=== PATIENT | male | born 1960 | race Caucasian/White ===

== ENCOUNTER → 2024-02-15 | Outpatient (CLI) | payer MEDICAID | END | disposition home or self-care (01) | LOC: LAB 10:34 | PROVIDERS: ATTEND Internal Medicine | DX: Z11.59 Encounter for screening for other viral diseases (principal); M21.371 Foot drop, right foot; K74.60 Unspecified cirrhosis of liver; E55.9 Vitamin D deficiency, unspecified; D64.9 Anemia, unspecified; L81.8 Other specified disorders of pigmentation; K76.82 Hepatic encephalopathy; R41.3 Other amnesia | CPT/HCPCS: 86703 ==

== ENCOUNTER → 2024-04-27 | Outpatient (CLI) | payer MEDICAID ==
[2024-04-27 09:41] LABS: Basophils # (auto) 0 10 ^3/uL (0-0.2); Basophils % (auto) 0.3 % (0.0-2.0); Eosinophils # (auto) 0.1 10 ^3/uL (0-0.8); Eosinophils % (auto) 1.5 % (0.0-7.0); Hematocrit 40.9 % (41.0-53.0); Hemoglobin 14.3 g/dL (13.5-17.5); Lymphocytes # (auto) 0.8 10 ^3/uL (0.4-5.4); Lymphocytes % (auto) 16.4 % (10.0-50.0); Mean Corpuscular Hemoglobin 32.3 pg (28.0-32.0); Mean Corpuscular Volume 92.3 fL (80.0-100.0); Monocytes # (auto) 0.4 10 ^3/uL (0-1.3); Monocytes % (auto) 7.4 % (0.0-12.0); Neutrophils # (auto) 3.8 10 ^3/uL (1.6-8.6); Neutrophils % (auto) 74.4 % (37.0-80.0); Platelet Count (auto) 70 10^3/uL (140-450); Red Blood Cells 4.43 10^6/uL (4.5-5.90); Red Cell Distribution Width 15.4 % (11.8-14.3); White Blood Cell 5.1 10^3/uL (4.4-10.8)
[2024-04-27 09:56] LABS: INR 1.14 (0.9-1.15)
[2024-04-27 10:16] LABS: Alanine Aminotransferase 53 U/L (7-40); Albumin 4.2 g/dL (3.2-4.8); Alkaline Phosphatase 92 U/L (46-116); Aspartate Aminotransferase 41 U/L (13-40); BUN/Creatinine Ratio 14.2 (10.0-20.0); Bilirubin, Total 1.6 mg/dL (0.2-1.0); Blood Urea Nitrogen 16 mg/dL (9-23); Calcium 10.1 mg/dL (8.7-10.4); Chloride 107 mmol/L (98-107); Glucose 111 mg/dL (74-106); Sodium 140 mmol/L (136-145); Total Protein 7.5 g/dL (5.7-8.2)
[2024-04-27 11:12] LABS: Anion Gap 8 (5-15); Carbon Dioxide 25 mmol/L (20-31)
[2024-04-28 12:06] LABS: AFP Serum Tumor Marker 2.8 ng/mL (0.0-8.4); Anti-Nuclear Antibody Direct Negative (Negative)
== END | disposition home or self-care (01) ==
LOC: LAB 09:19
PROVIDERS: ATTEND Internal Medicine Gastroenterology
DX: K74.60 Unspecified cirrhosis of liver (principal)
CPT/HCPCS: 36415; 80053; 82105; 82140; 82728; 85025; 85610; 86038

== ENCOUNTER → 2024-06-26 | Outpatient (CLI) | payer MEDICAID | END | disposition home or self-care (01) | LOC: LAB 07:29 | PROVIDERS: ATTEND Internal Medicine Gastroenterology | DX: R16.0 Hepatomegaly, not elsewhere classified (principal) | CPT/HCPCS: 36415; 82565; 84520 ==

== ENCOUNTER → 2024-09-18 | Outpatient (CLI) | payer MEDICAID ==
[2024-09-18 08:15] LABS: Urine Bacteria None Seen /hpf (None Seen)
[2024-09-18 08:42] LABS: Basophils # (auto) 0 10 ^3/uL (0-0.2); Basophils % (auto) 0.2 % (0.0-2.0); Eosinophils # (auto) 0.1 10 ^3/uL (0-0.8); Hematocrit 42.7 % (41.0-53.0); Hemoglobin 14.4 g/dL (13.5-17.5); Lymphocytes # (auto) 0.8 10 ^3/uL (0.4-5.4); Lymphocytes % (auto) 12.9 % (10.0-50.0); Mean Corpuscular Hemoglobin 30.8 pg (28.0-32.0); Mean Corpuscular Hgb Conc. 33.7 g/dL (32.0-36.0); Mean Corpuscular Volume 91.5 fL (80.0-100.0); Monocytes # (auto) 0.4 10 ^3/uL (0-1.3); Monocytes % (auto) 6.7 % (0.0-12.0); Neutrophils % (auto) 78.2 % (37.0-80.0); Nucleated Red Blood Cells % 0.1 %; Platelet Count (auto) 83 10^3/uL (140-450); Red Blood Cells 4.67 10^6/uL (4.5-5.90); Red Cell Distribution Width 15.3 % (11.8-14.3); White Blood Cell 6.4 10^3/uL (4.4-10.8)
[2024-09-18 08:56] LABS: Chloride 104 mmol/L (98-107); Potassium 4.1 mmol/L (3.5-5.1); Sodium 139 mmol/L (136-145)
[2024-09-18 08:58] LABS: Anion Gap 7 (5-15); Carbon Dioxide 28 mmol/L (20-31)
[2024-09-18 08:59] LABS: Calcium 10.2 mg/dL (8.7-10.4)
[2024-09-18 09:04] LABS: Alkaline Phosphatase 104 U/L (46-116); BUN/Creatinine Ratio 14.8 (10.0-20.0); Blood Urea Nitrogen 13 mg/dL (9-23)
[2024-09-18 09:05] LABS: Aspartate Aminotransferase 34 U/L (13-40)
[2024-09-18 09:06] LABS: Albumin 4.3 g/dL (3.2-4.8); Total Protein 7.3 g/dL (5.7-8.2)
[2024-09-18 09:07] LABS: Alanine Aminotransferase 41 U/L (7-40); Bilirubin, Total 1.7 mg/dL (0.2-1.0); Glucose 111 mg/dL (74-106)
[2024-09-18 09:59] LABS: Urine Blood Negative /uL (Negative); Urine Clarity Clear (Clear); Urine Color Yellow (Yellow); Urine Mucus FEW (None Seen); Urine Protein, UAD TRACE (Negative); Urine Specific Gravity 1.024 (1.001-1.035); Urine Squamous Epithelial Cell FEW /hpf (<5); Urine Urobilinogen 2 mg/dL (Negative); Urine WBC 7 /HPF (0-3)
[2024-09-18 11:06] LABS: Free T4 (Free Thyroxine) 0.9 ng/dL (0.89-1.76)
[2024-09-18 12:38] LABS: Free T3 2.88 pg/mL (2.3-4.2)
[2024-09-19 15:31] LABS: Triglycerides 66 mg/dL (< 150)
[2024-09-19 15:32] LABS: Cholesterol 168 mg/dL (< 200); LDL Cholesterol 95 mg/dL (< 100)
[2024-09-19 15:36] LABS: HDL Cholesterol 66 mg/dL (40-59)
== END | disposition home or self-care (01) ==
LOC: LAB 08:03
PROVIDERS: ATTEND Internal Medicine
DX: I25.10 Atherosclerotic heart disease of native coronary artery without angina pectoris (principal); I81 Portal vein thrombosis; D69.6 Thrombocytopenia, unspecified; R79.89 Other specified abnormal findings of blood chemistry
CPT/HCPCS: 36415; 80053; 80061; 81001; 83036; 84439; 84443; 84481; 85025

== ENCOUNTER → 2024-09-25 | Outpatient (CLI) | payer MEDICAID ==
[2024-09-25 11:16] LABS: Basophils # (auto) 0 10 ^3/uL (0-0.2); Basophils % (auto) 0.3 % (0.0-2.0); Eosinophils # (auto) 0.1 10 ^3/uL (0-0.8); Eosinophils % (auto) 2.2 % (0.0-7.0); Hematocrit 38.9 % (41.0-53.0); Hemoglobin 13.4 g/dL (13.5-17.5); Lymphocytes # (auto) 1.1 10 ^3/uL (0.4-5.4); Lymphocytes % (auto) 17.3 % (10.0-50.0); Mean Corpuscular Hemoglobin 31.8 pg (28.0-32.0); Mean Corpuscular Hgb Conc. 34.4 g/dL (32.0-36.0); Mean Corpuscular Volume 92.4 fL (80.0-100.0); Monocytes # (auto) 0.5 10 ^3/uL (0-1.3); Monocytes % (auto) 8.5 % (0.0-12.0); Neutrophils # (auto) 4.4 10 ^3/uL (1.6-8.6); Neutrophils % (auto) 71.7 % (37.0-80.0); Platelet Count (auto) 71 10^3/uL (140-450); Red Blood Cells 4.21 10^6/uL (4.5-5.90); Red Cell Distribution Width 15.2 % (11.8-14.3); White Blood Cell 6.2 10^3/uL (4.4-10.8)
[2024-09-25 11:24] LABS: INR 1.14 (0.9-1.15); Partial Thromboplastin Time 28.1 SEC (24.5-34.5); Prothrombin Time 11.9 sec (9.3-11.8)
[2024-09-25 11:50] LABS: Alanine Aminotransferase 40 U/L (7-40); Alkaline Phosphatase 96 U/L (46-116); Anion Gap 6 (5-15); Aspartate Aminotransferase 28 U/L (13-40); Blood Urea Nitrogen 14 mg/dL (9-23); Carbon Dioxide 25 mmol/L (20-31); Chloride 107 mmol/L (98-107); Glucose 104 mg/dL (74-106); Potassium 4.3 mmol/L (3.5-5.1); Sodium 138 mmol/L (136-145)
[2024-09-25 11:51] LABS: Total Protein 6.9 g/dL (5.7-8.2)
[2024-09-25 11:58] LABS: Bilirubin, Total 1.5 mg/dL (0.2-1.0)
== END | disposition home or self-care (01) ==
LOC: LAB 10:36
PROVIDERS: ATTEND Student in an Organized Health Care Education/Training Program
DX: K76.89 Other specified diseases of liver (principal)
CPT/HCPCS: 36415; 80053; 82105; 85025; 85610; 85730

== ENCOUNTER → 2024-10-16 | Outpatient (CLI) | payer MEDICAID ==
[~2024-10-16] MED LIST: GELATIN 1 SPONGE SIZE 50 TOP ONE; LIDOCAINE 2%HCL (LOCAL ANESTH.) INJ 10ml MDV ONE
[2024-10-16 10:51] LABS: Basophils # (auto) 0 10 ^3/uL (0-0.2); Basophils % (auto) 0.5 % (0.0-2.0); Eosinophils # (auto) 0.1 10 ^3/uL (0-0.8); Hematocrit 39.4 % (41.0-53.0); Hemoglobin 13.5 g/dL (13.5-17.5); Lymphocytes # (auto) 0.9 10 ^3/uL (0.4-5.4); Lymphocytes % (auto) 17.4 % (10.0-50.0); Mean Corpuscular Hemoglobin 31.4 pg (28.0-32.0); Mean Corpuscular Hgb Conc. 34.4 g/dL (32.0-36.0); Mean Corpuscular Volume 91.4 fL (80.0-100.0); Monocytes # (auto) 0.3 10 ^3/uL (0-1.3); Monocytes % (auto) 6.7 % (0.0-12.0); Neutrophils # (auto) 3.7 10 ^3/uL (1.6-8.6); Neutrophils % (auto) 73.4 % (37.0-80.0); Platelet Count (auto) 77 10^3/uL (140-450); Red Blood Cells 4.31 10^6/uL (4.5-5.90); Red Cell Distribution Width 14.5 % (11.8-14.3); White Blood Cell 5.1 10^3/uL (4.4-10.8)
[2024-10-16 11:14] LABS: Alanine Aminotransferase 39 U/L (7-40); Albumin 3.9 g/dL (3.2-4.8); Alkaline Phosphatase 96 U/L (46-116); Anion Gap 6 (5-15); Aspartate Aminotransferase 31 U/L (13-40); BUN/Creatinine Ratio 11.8 (10.0-20.0); Blood Urea Nitrogen 11 mg/dL (9-23); Calcium 9.7 mg/dL (8.7-10.4); Carbon Dioxide 27 mmol/L (20-31); Chloride 106 mmol/L (98-107); Glucose 101 mg/dL (74-106); Potassium 4.2 mmol/L (3.5-5.1); Sodium 139 mmol/L (136-145)
[2024-10-16 11:15] LABS: INR 1.11 (0.9-1.15); Prothrombin Time 11.6 sec (9.3-11.8)
[2024-10-16 11:22] LABS: Bilirubin, Total 1.3 mg/dL (0.2-1.0)
[2024-10-17 09:07] LABS: AFP Serum Tumor Marker 3.9 ng/mL (0.0-8.4)
[2024-10-17 14:07] LABS: Anti-Nuclear Antibody Direct Negative (Negative)
== END | disposition home or self-care (01) ==
LOC: LAB 10:27
PROVIDERS: ATTEND Internal Medicine Gastroenterology
DX: K74.60 Unspecified cirrhosis of liver (principal); R94.5 Abnormal results of liver function studies
CPT/HCPCS: 36415; 80053; 82105; 82140; 82728; 85025; 85610; 86038

== ENCOUNTER → 2024-10-17 | Outpatient (CLI) | payer MEDICAID ==
[2024-10-17] VITALS (7 sets, daily range): BP systolic 97–113; BP diastolic 54–68; PULSE 55–62; RESP 12–15; O2SAT 96–98
[~2024-10-17] MED LIST changes: -GELATIN 1 SPONGE SIZE 50 TOP ONE; -LIDOCAINE 2%HCL (LOCAL ANESTH.) INJ 10ml MDV ONE; +MIDAZOLAM HCL 2MG/2ML 2ml VIAL (1mg/ml) IV ONE; +fentaNYL CITRATE 100 MCG/2 ML VL IV ONE
--- NOTE | 2024-10-17 10:43 | DVH ---
CT ABDOMEN WITHOUT CONTRAST, HISTORY: MASS NOTED MRI PROCEDURE: Informed consent was obtained. The patient was placed left side down on the CT scanner, an d limited US/CT was performed of the liver. IV sedation was administered. The skin over the area of i nterest was prepped with chlorhexidine which was allowed to dry and draped in the usual sterile fashi on. Time out was performed. 1% local lidocaine was administered. With intermittent CT/US guidance, Te mno 17 gauge outer coaxial guiding needle was advanced into the right liver mass. However, after the inner needle stylet was removed, air entered the peritoneum space which limited visibility of the mas s under ultrasound. A CT was performed, however the mass is not seen on CT non contrast images. The needle was withdrawn , and the visceral tract embolized with gelfoam pledgets. Post procedural images were obtained. No biopsy could be obtained. DLP = 1578 mGy-cm. SEDATION: Dr. Debbie Stewart was personally responsible for the administration of moderate sedation during the procedure performed, including the use of an independent trained observer who had no other duties during the procedure. The drugs utilized were IV fentanyl and versed (see nursing log for details). The total time of supervision by the attending physician was approximately 45 minutes. FINDINGS: Peripherally located right liver lobe mass. Intra-procedural images demonstrate biopsy need le within the margin of targeted lesion. No biopsy could be obtained. Post procedural images do not demonstrate any significant hemorrhage. IMPRESSION: Unable to obtain liver mass biopsy sample. After the inner needle stylet was removed, air entered the peritoneum space which limited visibility of the mass under ultrasound. A CT was performed, however the mass is not seen on CT non contrast images. Discussion with the patient and to reschedule for repeat biopsy. Additionally, a CT scan is offe red in multiple phase images.
== END | disposition home or self-care (01) ==
LOC: XYW 08:19
PROVIDERS: ATTEND Student in an Organized Health Care Education/Training Program
DX: R16.0 Hepatomegaly, not elsewhere classified (principal); K74.60 Unspecified cirrhosis of liver
CPT/HCPCS: 47000; 74150; 76942

== ENCOUNTER → 2024-12-01 | Outpatient (CLI) | payer MEDICAID ==
[2024-12-01 10:37] LABS: Basophils # (auto) 0 10 ^3/uL (0-0.2); Eosinophils # (auto) 0.1 10 ^3/uL (0-0.8); Hemoglobin 13.6 g/dL (13.5-17.5); Lymphocytes # (auto) 0.7 10 ^3/uL (0.4-5.4); Monocytes # (auto) 0.4 10 ^3/uL (0-1.3); White Blood Cell 5.4 10^3/uL (4.4-10.8)
[2024-12-01 10:38] LABS: Basophils % (auto) 0.2 % (0.0-2.0); Eosinophils % (auto) 1.8 % (0.0-7.0); Hematocrit 39.7 % (41.0-53.0); Lymphocytes % (auto) 13.1 % (10.0-50.0); Mean Corpuscular Hemoglobin 31.6 pg (28.0-32.0); Mean Corpuscular Hgb Conc. 34.3 g/dL (32.0-36.0); Mean Corpuscular Volume 92.2 fL (80.0-100.0); Monocytes % (auto) 7.8 % (0.0-12.0); Neutrophils # (auto) 4.2 10 ^3/uL (1.6-8.6); Neutrophils % (auto) 77.1 % (37.0-80.0); Platelet Count (auto) 65 10^3/uL (140-450); Red Cell Distribution Width 16.1 % (11.8-14.3)
[2024-12-01 10:43] LABS: INR 1.14 (0.9-1.15); Partial Thromboplastin Time 28.6 SEC (24.5-34.5); Prothrombin Time 11.9 sec (9.3-11.8)
[2024-12-01 10:55] LABS: Platelet Estimate Decreased
== END | disposition home or self-care (01) ==
LOC: LAB 09:58
PROVIDERS: ATTEND Student in an Organized Health Care Education/Training Program
DX: K76.89 Other specified diseases of liver (principal)
CPT/HCPCS: 36415; 85025; 85610; 85730

== ENCOUNTER 2025-02-08 08:14 | Inpatient (IN) | payer MEDICAID ==
[~2025-02-08] VITALS: Ht 175.3 cm; Wt 92.0 kg
--- NOTE | 2025-02-08 08:35 | ED.PDOC ---
GI ASSESSMENT HPI Comments A 64 YEAR OLD MALE PRESENTS TO THE ED WITH COMPLAINT OF ABDOMINAL PAIN. PATIENT STATES THAT HIS PAIN IS LOCALIZED TO HIS EPIGASTRIC REGION, NONRADIATING, DESCRIBES DULL/CRAMPING, AND RATES HIS PAIN A 6/10. PATIENT HAS HISTORY OF LIVER CIRRHOSIS, BUT HAS HAD A PARACENTESIS IN THE PAST, MANY YEARS AGO. PATIENT DENIES FEVER, CHILLS, SHORTNESS OF BREATH, CHEST PAIN, NAUSEA, VOMITING, HEADACHE, OR OTHER COMPLAINTS. NO OTHER SYMPTOMS OR MODIFYING FACTORS AT THIS TIME. PATIENT IS ALERT, ORIENTED X 4, AND HAS STEADY GAIT. Chief Complaint: Abdominal Pain Time Seen by MD: 08:25 Reviewed Notes: Nurses Notes, Medications, Allergies Allergies: Coded Allergies: NO KNOWN ALLERGIES (Unverified , 10/17/24) Home Meds Reported Medications Spironolactone (Spironolactone) 100 Mg Tab, 1 TAB PO DAILY 02/08/25 Furosemide (Furosemide) 40 Mg Tab, 1 TAB PO DAILY 02/08/25 Ergocalciferol (Vitamin D) 50,000 Unit Cap, 46973 CAP PO QWEEKLY 02/08/25 Information Source: Patient Mode of Arrival: Ambulatory Timing: Days Duration: Since onset, Days Prehospital treatment: None Quality: Aching, Cramping, Colicky Vomitus: None Stool: Normal Severity: Moderate Recent: None Recent Hx of: Liver Disease Pain Location: Epigastric Modifying Factors: Nothing Associated sign and symptoms: Abdominal Pain Past Medical History PAST MEDICAL HISTORY: Liver Surgical History: Denies all surgeries Family History Family History: No family hx of Stroke Social History Smoker: Non-Smoker Alcohol: Denies ETOH Use Drugs: Denies Drug Use Constitutional: denies: chills, diaphoresis, fatigue, fever, malaise, sweats, weakness, others EENTM: denies: blurred vision, double vision, ear bleeding, ear discharge, ear drainage, ear pain, ear ringing, eye pain, eye redness, hearing loss, mouth pain, mouth swelling, nasal discharge, nose bleeding, nose congestion, nose pain, photophobia, tearing, throat pain, throat swelling, voice changes, others Respiratory: denies: cough, hemoptysis, orthopnea, SOB at rest, shortness of breath, SOB with excertion, stridor, wheezing, others Cardiovascular: denies: chest pain, dizzy spells, diaphoresis, Dyspnea on exertion, edema, irregular heart beat, left arm pain, lightheadedness, palpitations, PND, syncope, others Gastrointestinal: reports: abdominal pain; denies: abdomen distended, blood streaked bowels, constipated, diarrhea, dysphagia, difficulty swallowing, hematemesis, melena, nausea, poor appetite, poor fluid intake, rectal bleeding, rectal pain, vomiting, others Genitourinary: denies: burning, dysuria, flank pain, frequency, hematuria, incontinence, penile discharge, penile sore, pain, testicle pain, testicle swelling, urgency, others Neurological: denies: dizziness, fainting, headache, left sided numbness, left sided weakness, numbness, paresthesia, pre-existing deficit, right sided numbness, right sided weakness, seizure, speech problems, tingling, tremors, weakness, others Musculoskeletal: denies: back pain, gout, joint pain, joint swelling, muscle pain, muscle stiffness, neck pain, others Integumetry: reports: rash Allergic/Immunocompromised: denies: Difficulty Healing, Frequent Infections, Hives, Itching, others Hematologic/Lymphatic: reports: swollen glands Endocrine: denies: excessive hunger, excessive sweating, excessive thirst, excessive urination, flushing, intolerance to cold, intolerance to heat, unexplained weight gain, unexplained weight loss, others Psychiatric: denies: anxiety, bipolar disorder, depression, hopeless, panic disorder, schizophrenia, sleepless, suicidal, others All Other Systems: Reviewed and Negative Physical Exam General Appearance: No Apparent Distress, Normal HEENT: Normal ENT Inspection, PERRL/EOMI, Pharynx Normal, TMs Normal Neck: Full Range of Motion, Non-Tender, Normal, Normal Inspection Respiratory: Chest Non-Tender, Lungs Clear, No Accessory Muscle Use, No Respiratory Distress, Normal Breath Sounds Cardiovascular: No Edema, No JVD, No Murmur, No Gallop, Normal Peripheral Pulses, Regular Rate/Rhythm Breast Exam: Deferred Gastrointestinal: Epigastric, No Organomegaly, No Pulsatile Mass, Normal Bowel Sounds, Soft, Tenderness (EPIGASTRIC, NO GUARDING AND REBOUND TENDERNESS, NO DISTENDED ABD. ) Genitalia: Deferred Pelvic: Deferred Rectal: Deferred Extremities: No calf tenderness, Normal capillary refill, Normal inspection, Normal range of motion, Non-tender, No pedal edema Musculoskeletal : Apperance: Normal Neurologic: Alert, gas station clerk II-XII nml as Tested, No Motor Deficits, Normal Affect, Normal Mood, No Sensory Deficits Cerebellar Function: Normal Reflexes: Normal Skin: Dry, Normal Color, Warm Peripheral Pulses: 2+ carotid (R), 2+ carotid (L) Lymphatic: No Adenopathy EKG EKG : Pulse Rate (adult): 82 [place]: Normal Cardiac Rhythm: NSR Block: None Hypertrophy: None ST: Normal Was a procedure done? Was a procedure done?: No GI differential Dx Differential Diagnosis: Cholangitis, Cholecystitis, Gastritis/PUD, Gastroenteritis, Hepatitis, Inflammatory BD, UTI X-Ray, Labs, Meds, VS Vital Signs Date Time Temp Pulse Resp B/P (MAP) Pulse Ox O2 Delivery O2 Flow Rate FiO2 02/08/25 10:57 89 18 98 Room Air* 0 21 02/08/25 10:57 97.0 80 16 114/78 (90) 96 97.0 02/08/25 10:54 80 16 114/78 02/08/25 09:13 82 02/08/25 08:32 82 02/08/25 08:20 98.2 83 16 129/69 (89) 97 98.2 Lab Test 02/08/25 08:35 02/08/25 08:29 Range/Units White Blood Count 8.4 4.4-10.8 10^3/uL Red Blood Count 4.27 L 4.5-5.90 10^6/uL Hemoglobin 13.8 13.5-17.5 g/dL Hematocrit 39.5 L 41.0-53.0 % Mean Corpuscular Volume 92.5 80.0-100.0 fL Mean Corpuscular Hemoglobin 32.4 H 28.0-32.0 pg Mean Corpuscular Hemoglobin Concent 35.0 32.0-36.0 g/dL Red Cell Distribution Width 15.1 H 11.8-14.3 % Platelet Count 72 L 140-450 10^3/uL Mean Platelet Volume 7.6 6.9-10.8 fL Neutrophils (%) (Auto) 84.7 H 37.0-80.0 % Lymphocytes (%) (Auto) 6.8 L 10.0-50.0 % Monocytes (%) (Auto) 7.1 0.0-12.0 % Eosinophils (%) (Auto) 1.2 0.0-7.0 % Basophils (%) (Auto) 0.2 0.0-2.0 % Neutrophils # (Auto) 7.1 1.6-8.6 10 ^3/uL Lymphocytes # (Auto) 0.6 0.4-5.4 10 ^3/uL Monocytes # (Auto) 0.6 0-1.3 10 ^3/uL Eosinophils # (Auto) 0.1 0-0.8 10 ^3/uL Basophils # (Auto) 0 0-0.2 10 ^3/uL Nucleated Red Blood Cells 0.0 % Prothrombin Time 11.8 9.3-11.8 sec Prothrombin Time INR 1.13 0.9-1.15 Sodium Level 140 136-145 mmol/L Potassium Level 4.1 3.5-5.1 mmol/L Chloride Level 108 H 98-107 mmol/L Carbon Dioxide Level 22 20-31 mmol/L Anion Gap 10 5-15 Blood Urea Nitrogen 10 9-23 mg/dL Creatinine 0.80 0.700-1.30 mg/dL Glomerular Filtration Rate Calc 98 >90 mL/min BUN/Creatinine Ratio 12.5 10.0-20.0 Serum Glucose 102 74-106 mg/dL Calcium Level 9.7 8.7-10.4 mg/dL Total Bilirubin 2.6 H 0.2-1.0 mg/dL Aspartate Amino Transferase (AST) 31 13-40 U/L Alanine Aminotransferase (ALT) 26 7-40 U/L Alkaline Phosphatase 84 46-116 U/L Ammonia 42 H 11-32 umol/L Troponin I High Sensitivity < 3 L </=54 ng/L Total Protein 6.5 5.7-8.2 g/dL Albumin 3.7 3.2-4.8 g/dL Lipase 44 12-53 U/L Urine Color Yellow Yellow Urine Clarity Clear Clear Urine pH 6.0 5.0-9.0 Urine Specific [place] 1.023 1.001-1.035 Urine Protein Negative Negative Urine Ketones Negative Negative Urine Blood Negative Negative /uL Urine Nitrite Negative Negative Urine Bilirubin Negative Negative Urine Urobilinogen 3 H Negative mg/dL Urine Leukocyte Esterase Trace Negative /uL Urine RBC None seen 0 - 3 /hpf Urine Microscopic WBC 3 0-3 /HPF Urine Squamous Epithelial Cells Few <5 /hpf Urine Bacteria Few H None Seen /hpf Urine Mucus Few None Seen Urine Glucose Normal Normal mg/dL Current Medications Medications (Trade) Dose Ordered Sig/Sasha Route Start Time Stop Time Status Last Admin Morphine Sulfate 2 mg ONCE ONCE IV 02/08/25 10:45 02/08/25 10:46 DC 02/08/25 10:54 Ondansetron HCl (Zofran) 4 mg ONCE ONCE IV 02/08/25 10:45 02/08/25 10:46 DC 02/08/25 10:54 X-Ray, Labs, Meds, VS Comment EXTERNAL MEDICAL RECORDS: NONE INDEPENDENT HISTORIANS: NONE SOCIAL DETERMINANTS OF HEALTH: NONE LABS ORDERED: CBC, CMP, LIPASE, AMMONIA, TROPONIN, PTT/PT REVIEWED AND INTERPRETED RESULTS: NONE IMAGING ORDERED: ABDOMEN COMPLETE ULTRASOUND: LIVER MASS, ASCITES AND GALLSTONES WITH CHOLECYSTITIS. TREATMENTS ORDERED: MORPHINE 2MG IVP AND ZOFRAN 4MG IVP. PATIENT'S CASE AND RESULTS HAVE BEEN DISCUSSED WITH THE ED ATTENDING PHYSICIAN, DR. DUGAN, AND THEY AGREE WITH MY PLAN OF CARE. PATIENT HAS KNOWN HISTORY OF LIVER DISEASE (CIRRHOSIS), HE CAME HERE FOR EPIGASTRIC PAIN AND AMMONIA LEVELS WERE INCREASED. ABD US SHOWED ASCITES, GALLSTONES WITH POSSIBLE CHOLECYSTITIS. PATIENT NEEDS TO BE ADMITTED TO THE HOSPITAL FOR FURTHER EVALUATION AND TREATMENT. Time of 1ST Reevaluation: 08:55 Reevaluation 1ST: Unchanged Time of 2ND Reevaluation: 12:00 Reevaluation 2ND: Unchanged Patient Education/Counseling: Diagnosis, Treatment Family Education/Counseling: Diagnosis, Treatment SEPSIS Sepsis Screen Physician Orders Electrocardigram (02/08/25 08:26) Abdomen Limited (02/08/25 08:26) Heplock Iv (02/08/25 ) Ceftriaxone 1gm/50ml D5w (Rocephin) (02/08/25 12:00) Admit (02/08/25 11:56) Allergies (02/08/25 11:56) Code Status (02/08/25 11:56) Ondansetron Hcl (Zofran) (02/08/25 12:00) Complete Blood Count (02/09/25 04:00) Comprehensive Metabolic Panel (02/09/25 04:00) Cardiac Diet-2gna,Lofat,Lochol (02/08/25 Lunch) Sequential Compression Device (02/08/25 ) Ergocalciferol (Vitamin D 50,000 Unit) (02/08/25 12:00) Furosemide Tablet (Lasix Tablet) (02/09/25 10:00) (Nf) Spironolactone (02/09/25 10:00) Lactulose Oral (02/08/25 12:00) Ammonia (02/09/25 05:00) Ammonia (02/10/25 05:00) Ammonia (02/11/25 05:00) Ammonia (02/12/25 05:00) Ammonia (02/13/25 05:00) Ct Ab Pel Wo Con-No Oral Or Iv (02/08/25 12:03) Vital Signs Date Time Temp Pulse Resp B/P (MAP) Pulse Ox O2 Delivery O2 Flow Rate FiO2 02/08/25 10:57 89 18 98 Room Air* 0 21 02/08/25 10:57 97.0 80 16 114/78 (90) 96 97.0 02/08/25 10:54 80 16 114/78 02/08/25 09:13 82 02/08/25 08:32 82 02/08/25 08:20 98.2 83 16 129/69 (89) 97 98.2 Laboratory Tests Test 02/08/25 08:35 White Blood Count 8.4 10^3/uL (4.4-10.8) Medications Medications Dose Ordered Sig/Sasha Route Start Time Stop Time Status Last Admin Dose Admin Morphine Sulfate 2 mg ONCE ONCE IV 02/08/25 10:45 02/08/25 10:46 DC 02/08/25 10:54 Ondansetron HCl 4 mg ONCE ONCE IV 02/08/25 10:45 02/08/25 10:46 DC 02/08/25 10:54 Departure 1 Departure Time of Disposition: 12:10 Impression: Primary Impression: Cholelithiasis and cholecystitis without obstruction Qualified Codes: K80.00 - Calculus of gallbladder with acute cholecystitis without obstruction Additional Impressions: Liver mass Ascites Qualified Codes: K70.31 - Alcoholic cirrhosis of liver with ascites Disposition: ADMITTED INPATIENT Admit to: Tele Condition: Serious Critical Care Note Critical Care Time?: No Stability Stability form required: Yes Unstable for transfer: Requires medication, ED Physician Assesment, Possible rapid decline Heart Score Heart Score: Heart Score Response (Comments) Value History N/A 0 EKG N/A 0 Age N/A 0 Risk Factors N/A 0 Troponin N/A 0 Total 0 I personally scribed for JENI BORREGO ([email or web address]) on 02/08/25 at 08:35. Electronically submitted by Aram Recinos ([email or web address]). I personally scribed for JENI BORREGO ([email or web address]) on 02/08/25 at 08:53. Electronically submitted by Aram Recinos ([email or web address]). I personally scribed for JENI BORREGO ([email or web address]) on 02/08/25 at 10:40. Electronically submitted by Aram Recinos ([email or web address]). JENI BORREGO Feb 08, 2025 08:35
[2025-02-08 09:10] LABS: Hematocrit 39.5 % (41.0-53.0); Hemoglobin 13.8 g/dL (13.5-17.5); Mean Corpuscular Hemoglobin 32.4 pg (28.0-32.0); Mean Corpuscular Volume 92.5 fL (80.0-100.0); Nucleated Red Blood Cells % 0.0 %
[2025-02-08 09:14] LABS: Alanine Aminotransferase 26 U/L (7-40); Albumin 3.7 g/dL (3.2-4.8); Alkaline Phosphatase 84 U/L (46-116); Anion Gap 10 (5-15); BUN/Creatinine Ratio 12.5 (10.0-20.0); Blood Urea Nitrogen 10 mg/dL (9-23); Calcium 9.7 mg/dL (8.7-10.4); Carbon Dioxide 22 mmol/L (20-31); Glucose 102 mg/dL (74-106); Potassium 4.1 mmol/L (3.5-5.1); Sodium 140 mmol/L (136-145); Total Protein 6.5 g/dL (5.7-8.2)
[2025-02-08 09:18] LABS: Bilirubin, Total 2.6 mg/dL (0.2-1.0); Chloride 108 mmol/L (98-107)
[2025-02-08 09:19] LABS: INR 1.13 (0.9-1.15); Prothrombin Time 11.8 sec (9.3-11.8)
[2025-02-08 09:19] LABS: Urine Protein, UAD Negative (Negative)
[2025-02-08 09:21] LABS: Lipase 44 U/L (12-53)
[2025-02-08] MEDS: MORPHINE SULFATE INJ 2 MG/ml SYRG IV ONE ×2 (10:54→13:11)
[2025-02-08] MEDS: ONDANSETRON HCL 4 MG/2 ML VIAL IV ONE (10:54)
[2025-02-08 10:57] VITALS: PULSE 89; RESP 18; O2SAT 98
[2025-02-08] MEDS ORDERED: ERGO1CAP12 PO (11:59)
[2025-02-08] MEDS ORDERED: FURO40TA4 PO (11:59)
[2025-02-08] MEDS ORDERED: SPIR100T4 PO (11:59)
[2025-02-08] MEDS ORDERED: ONDANSETRON HCL 4 MG/2 ML VIAL IV PRN (12:00)
--- NOTE | 2025-02-08 12:22 | DVHHP2 ---
History of Present Illness Reason for Visit: Abdominal pain History of Present Illness Karl Sandra is a 64-year-old male with past medical history of liver cirrhosis, paracentesis last one done few years ago, liver mass, right dropped foot, back surgery, and hernia repair who presents to the ED with abdominal pain that started 2 days ago. Patient reports that the pain is currently 5/10 aching and intermittent in nature. He states that there are no triggering or alleviating factors. He does report that when there is pressure applied to his left upper quadrant there is some pain. No pain or tenderness noted on his right upper quadrant. Patient's fitamie Marisol at the chair side. Patient reports that he had a biopsy done 2 months ago in November 2024 and negative for cancer. Patient also reports that he has an appointment with his primary to have an MRI with contrast of his liver tomorrow. Patient denies any recent trauma or injury, recent sick contacts, recent ingestion of spoiled food, recent travels, nausea, vomiting, diarrhea, chest pain, shortness of breath, lightheadedness, weakness, dizziness, or urinary symptoms. Patient reports that he does not have any burning frequency or urgency. He also reports that he is compliant with his medications. Patient reports that he developed liver cirrhosis due to all the medications that he was taking. Hepatobiliary: Cirrhosis Past Medical History Liver mass Right dropped foot Past Surgical History: Hernia Repair, Other (Paracentesis and back surgery) Family History: None Smoke: No ALCOHOL: none Drugs: None Lives: with Family Domestic Violence: Neg Review of Systems Gastrointestinal: Abdominal Pain Allergies: Coded Allergies: NO KNOWN ALLERGIES (Unverified , 10/17/24) Medications Current Medications Medications Dose Ordered Sig/Sasha Route Start Time Stop Time Status Last Admin Dose Admin Ceftriaxone Sodium 50 ml @ 100 mls/hr DAILY@09 IV 02/08/25 12:00 UNV Ondansetron HCl 4 mg Q4HP PRN IV 02/08/25 12:00 UNV Ergocalciferol 50,000 unit QWEEKLY PO 02/08/25 12:00 UNV Furosemide 40 mg DAILY PO 02/09/25 10:00 UNV Patient Own Medication 1 tab DAILY PO 02/09/25 10:00 UNV Exam Vital Signs Vital Signs Date Time Temp Pulse Resp B/P (MAP) Pulse Ox O2 Delivery O2 Flow Rate FiO2 02/08/25 10:57 89 18 98 Room Air* 0 21 02/08/25 10:57 97.0 114/78 (90) 97.0 General Appearance: Alert, Oriented X3, Cooperative, No acute distress HEENT: Atraumatic, PERRLA, EOMI, Mucous membr. moist/pink Respiratory: Clear to auscultation, Normal air movement Cardiovascular: Regular rate, Normal S1, Normal S2, No murmurs Abdominal: Normal bowel sounds, Soft Extremities: No clubbing, No cyanosis, No edema, Normal pulses Skin: No significant lesion Neuro: Normal gait, Normal speech, Strength at 5/5 X4 ext, Normal tone, Sensation intact Psych/Mental Status: Mental status NL, Mood NL Labs/Xrays Labs Test 02/08/25 08:35 02/08/25 08:29 Range/Units White Blood Count 8.4 4.4-10.8 10^3/uL Red Blood Count 4.27 L 4.5-5.90 10^6/uL Hemoglobin 13.8 13.5-17.5 g/dL Hematocrit 39.5 L 41.0-53.0 % Mean Corpuscular Volume 92.5 80.0-100.0 fL Mean Corpuscular Hemoglobin 32.4 H 28.0-32.0 pg Mean Corpuscular Hemoglobin Concent 35.0 32.0-36.0 g/dL Red Cell Distribution Width 15.1 H 11.8-14.3 % Platelet Count 72 L 140-450 10^3/uL Mean Platelet Volume 7.6 6.9-10.8 fL Neutrophils (%) (Auto) 84.7 H 37.0-80.0 % Lymphocytes (%) (Auto) 6.8 L 10.0-50.0 % Monocytes (%) (Auto) 7.1 0.0-12.0 % Eosinophils (%) (Auto) 1.2 0.0-7.0 % Basophils (%) (Auto) 0.2 0.0-2.0 % Neutrophils # (Auto) 7.1 1.6-8.6 10 ^3/uL Lymphocytes # (Auto) 0.6 0.4-5.4 10 ^3/uL Monocytes # (Auto) 0.6 0-1.3 10 ^3/uL Eosinophils # (Auto) 0.1 0-0.8 10 ^3/uL Basophils # (Auto) 0 0-0.2 10 ^3/uL Nucleated Red Blood Cells 0.0 % Prothrombin Time 11.8 9.3-11.8 sec Prothrombin Time INR 1.13 0.9-1.15 Sodium Level 140 136-145 mmol/L Potassium Level 4.1 3.5-5.1 mmol/L Chloride Level 108 H 98-107 mmol/L Carbon Dioxide Level 22 20-31 mmol/L Anion Gap 10 5-15 Blood Urea Nitrogen 10 9-23 mg/dL Creatinine 0.80 0.700-1.30 mg/dL Glomerular Filtration Rate Calc 98 >90 mL/min BUN/Creatinine Ratio 12.5 10.0-20.0 Serum Glucose 102 74-106 mg/dL Calcium Level 9.7 8.7-10.4 mg/dL Total Bilirubin 2.6 H 0.2-1.0 mg/dL Aspartate Amino Transferase (AST) 31 13-40 U/L Alanine Aminotransferase (ALT) 26 7-40 U/L Alkaline Phosphatase 84 46-116 U/L Ammonia 42 H 11-32 umol/L Troponin I High Sensitivity < 3 L </=54 ng/L Total Protein 6.5 5.7-8.2 g/dL Albumin 3.7 3.2-4.8 g/dL Lipase 44 12-53 U/L Urine Color Yellow Yellow Urine Clarity Clear Clear Urine pH 6.0 5.0-9.0 Urine Specific [place] 1.023 1.001-1.035 Urine Protein Negative Negative Urine Ketones Negative Negative Urine Blood Negative Negative /uL Urine Nitrite Negative Negative Urine Bilirubin Negative Negative Urine Urobilinogen 3 H Negative mg/dL Urine Leukocyte Esterase Trace Negative /uL Urine RBC None seen 0 - 3 /hpf Urine Microscopic WBC 3 0-3 /HPF Urine Squamous Epithelial Cells Few <5 /hpf Urine Bacteria Few H None Seen /hpf Urine Mucus Few None Seen Urine Glucose Normal Normal mg/dL SEPSIS Sepsis Screen Date sepsis recognized/suspect: Feb 08, 2025 Time Sepsis recognized/suspect: 819 Recent Procedure: No On Antibiotic Therapy: No Respiratory Rate >20: No Heart Rate >90: No Temp<36 C (96.8 F) or >38.3 C: No SBP <90 or MAP <65 mmHG: No New Acute Mental Status Change: No Is the patient on CPAP, BIPAP,: No Physician Orders Electrocardigram (02/08/25 08:26) Abdomen Limited (02/08/25 08:26) Heplock Iv (02/08/25 ) Ceftriaxone 1gm/50ml D5w (Rocephin) (02/08/25 12:00) Admit (02/08/25 11:56) Allergies (02/08/25 11:56) Code Status (02/08/25 11:56) Ondansetron Hcl (Zofran) (02/08/25 12:00) Complete Blood Count (02/09/25 04:00) Comprehensive Metabolic Panel (02/09/25 04:00) Cardiac Diet-2gna,Lofat,Lochol (02/08/25 Lunch) Sequential Compression Device (02/08/25 ) Ergocalciferol (Vitamin D 50,000 Unit) (02/08/25 12:00) Furosemide Tablet (Lasix Tablet) (02/09/25 10:00) (Nf) Spironolactone (02/09/25 10:00) Lactulose Oral (02/08/25 12:00) Ammonia (02/09/25 05:00) Ammonia (02/10/25 05:00) Ammonia (02/11/25 05:00) Ammonia (02/12/25 05:00) Ammonia (02/13/25 05:00) Vital Signs Date Time Temp Pulse Resp B/P (MAP) Pulse Ox O2 Delivery O2 Flow Rate FiO2 02/08/25 10:57 89 18 98 Room Air* 0 21 02/08/25 10:57 97.0 80 16 114/78 (90) 96 97.0 02/08/25 10:54 80 16 114/78 02/08/25 09:13 82 02/08/25 08:32 82 02/08/25 08:20 98.2 83 16 129/69 (89) 97 98.2 Laboratory Tests Test 02/08/25 08:35 White Blood Count 8.4 10^3/uL (4.4-10.8) Medications Medications Dose Ordered Sig/Sasha Route Start Time Stop Time Status Last Admin Dose Admin Morphine Sulfate 2 mg ONCE ONCE IV 02/08/25 10:45 02/08/25 10:46 DC 02/08/25 10:54 2 MG Ondansetron HCl 4 mg ONCE ONCE IV 02/08/25 10:45 02/08/25 10:46 DC 02/08/25 10:54 4 MG Assessment/Plan Assessment/Plan Assessment Intractable abdominal pain likely due to UTI versus mets Thrombocytopenia Hyperbilirubinemia History of liver cirrhosis History of paracentesis last one done few years ago History of liver mass History of right dropped foot History of back surgery History of hernia repair Plan Admit to [facility] Antiemetics Pain management PT/INR Trend Ammonia levels Abdominal ultrasound EKG Troponin noted Lipase Lactulose CT abdomen and pelvis ordered Avoid hepatotoxic medications Avoid anti coags due to platelet level Diet Home medications reconciled DVT prophylaxis-not indicated patient ambulating PUD prophylaxis-PPIs Discussed plan of care with patient, patient's fiancee, and nurse Consider GI consult if [place] [id number] Preventive counseling healthy eating habits, physical activity, and regular checkups Plan discussed with: Patient, Spouse My Orders Orders - LALIT SANDERS Procedure Category Date Status Time Ceftriaxone 1gm/50ml PHA 02/08/25 Logged D5w (Rocephin) 12:00 Admit ADMIT 02/08/25 Transmitted 11:56 Allergies SHANIKA 02/08/25 In Process 11:56 Code Status CODE 02/08/25 Transmitted 11:56 Ondansetron Hcl PHA 02/08/25 Logged (Zofran) 12:00 Complete Blood Count LAB 02/09/25 Verified 04:00 Comprehensive LAB 02/09/25 Verified Metabolic Panel 04:00 Cardiac DIET 02/08/25 Transmitted Diet-2gna,Lofat,Lochol Lunch Sequential SHANIKA 02/08/25 In Process Compression Device Ergocalciferol PHA 02/08/25 Logged (Vitamin D 50,000 12:00 Furosemide Tablet PHA 02/09/25 Logged (Lasix Tablet) 10:00 (Nf) Spironolactone PHA 02/09/25 Logged 10:00 Lactulose Oral PHA 02/08/25 Verified 12:00 Ammonia LAB 02/09/25 Verified 05:00 Ammonia LAB 02/10/25 Verified 05:00 Ammonia LAB 02/11/25 Verified 05:00 Ammonia LAB 02/12/25 Verified 05:00 Ammonia LAB 02/13/25 Verified 05:00 Date of Service: Feb 08, 2025 Billing Provider: LALIT SANDERS Common Visit Codes: [id number] INP/OBS CARE (HIGH) Secondary Visit Codes: [id number] COUNSELING IND LALIT SANDERS Feb 08, 2025 12:22
--- NOTE | 2025-02-08 12:44 | DVH ---
Exam: CT CT AB PEL WO CON-NO ORAL OR IV History: abd pain Comparison Study: None Technique: Multidetector spiral CT of the abdomen was performed from lung bases to pubic symphysis. Imaging was performed without IV contrast. Axial, coronal and sagittal multiplanar reformats were ob tained from the axial data set by the technologist. Radiation Dose : 1. Abdomen/Pelvis: CTDIvol 19.3 mGy, DLP 1071 mGy*cm. Findings: Evaluation of solid organs is limited due to lack of intravenous contrast use. Lung Bases: No acute or significant lung base finding. Normal heart size. No pleural or pericardial effusion. Liver: The liver is normal in size. No focal lesions. Gallbladder and Biliary Tree: Unremarkable Spleen: Spleen measures up to 16 cm. Pancreas: The pancreas is grossly normal in appearance. Adrenal Glands: Unremarkable Kidneys: Kidneys are grossly normal without calculi or hydronephrosis. Bladder: Grossly unremarkable for degree of distention. Bowel: The stomach is grossly normal in appearance. Multiple slightly dilated loops of small bowel ar e seen throughout the lower abdomen which may reflect focal ileus versus low-grade small bowel obstru ction. Concentric wall thickening of the distal colon is suggestive of infectious/inflammatory coliti s The appendix is not visualized; however, no secondary findings of acute appendicitis identified. Ascites: Mild abdominopelvic ascites Lymphadenopathy: No mesenteric, retroperitoneal or periportal lymphadenopathy. Abdominal Wall and Mesentery: Superficial fluid collection is seen in the lower midline abdomen measu ring 2.4 x 7.0 cm. Vasculature: The visualized abdominal aorta is normal in size and caliber. Evaluation of abdominal a nd pelvic vessels is limited due to lack of intravenous contrast. Pelvic Organs: Unremarkable Musculoskeletal: No aggressive focal bony lesions, acute fractures or dislocation. IMPRESSION: 1. Multiple slightly dilated loops of small bowel are seen throughout the lower abdomen which may ref lect focal ileus versus low-grade small bowel obstruction. 2. Concentric wall thickening of the distal colon is suggestive of infectious/inflammatory colitis 3. Mild abdominopelvic ascites. 4. Superficial fluid collection is seen in the lower midline abdomen measuring 2.4 x 7.0 cm.. Radiation optimization: All CT scans at this facility use at least one of these dose optimization angelica hniques: automated exposure control mA and/or kV adjustment per patient size (includes targeted exam s where dose is matched to clinical indication) or iterative reconstruction.
[2025-02-08] MEDS: LACTULOSE 20Gm/30ML SOLN PO SCH (13:01)
[2025-02-08] MEDS: cefTRIAXone 1GM/50ML D5W 50 ML IV SCH (13:01)
[2025-02-08] MEDS: GADOTERATE MEG 10 MMOL/20ml INJ (0.5MMOL/ml) IV ONE (13:29)
--- NOTE | 2025-02-08 14:50 | DVH ---
PROCEDURE: MRI MRI ABDOMEN W AND WO Indication: RULE OUT MASS, ABD PAIN COMPARISON: 02/09/2020 TECHNIQUE: Multiplanar multisequence images of the abdomen were obtained with and without contrast. FINDINGS: Examination degraded by motion. The adrenal glands unremarkable. Marked splenomegaly with the spleen measuring 15.4 cm craniocaudal. Numerous perisplenic varices. No hydronephrosis. Pancreas unremarkable. Cholelithiasis. Common bile duct is visually nondilated. Pancreatic duct nondilated. Liver capsule m ildly nodular morphology. Perigastric varices. There is a posterior right hepatic lobe mildly T2 brig ht lesion demonstrating increased DWI signal measuring 3 x 3.1 cm. There is enhancement within the le ashish however dedicated arterial phase imaging not obtained. The contrast-enhanced sequences demonstr ate portal venous opacification. Stomach is partially distended. The imaged small bowel loops are moderately distended with There is a moderate volume of ascites fluid most pronounced in the right upper quadrant. The abdominal aorta is normal in caliber. There is a ventral wallm midline fluid collection measuring 6.1 x 2.2 cm. Soft tissue edema/ stranding. Colonic diverticula. IMPRESSION: Liver capsule nodular morphology suggesting cirrhosis. Sequela of portal hypertension including ajay tae and splenic varices, marked splenomegaly. Moderate volume of ascites fluid. Posterior right hepatic lobe T2 bright lesion measuring 3.1 cm, concerning for hepatic neoplasm/ HCC. Recommend oncology and GI consultation for further evaluation. This examination was not obtained wi dedicated multiphasic imaging with the earliest sequences demonstrating blood flow in the portal v enous phase already. Repeat multiphasic MRI abdomen with and without contrast suggested to garcia ana acterize the lesion. Anterior abdominal wall/ ventral wall collection measuring 6.1 x 2.2 cm. Small bowel wall edema/ thickening which can be secondary to enteritis, inflammatory disease, portal hypertension. Other findings as described. Please refer to CT from 24 also findings of large bowel wall thickening most pronounced in the rectosigmoid colon region.
[2025-02-08] MEDS ORDERED: ACETAMINOPHEN 325 MG TAB PO PRN (17:15)
[2025-02-08] MEDS: MORPHINE SULFATE INJ 2 MG/ml SYRG IV PRN (17:34)
--- NOTE | 2025-02-08 18:53 | ECG ---
[facility] Test Date: 2025-02-08 Test Time: 08:32:22 Pat Name: ADAIR CIFUENTES Department: ER Room: 0246 A Gender: M Binding Stitcher: ER : 1960 Requested By: JENI BORREGO Order Number: [id number] Reading MD: Chad Apple Measurements Intervals David Rate: 82 P: 60 FL: 163 QRS: 38 QRSD: 84 T: 56 QT: 368 QTc: 430 Interpretive Statements Sinus rhythm Electronically Signed On 02-08-2025 19:09:17 PDT by Chad Apple Please click the below link to view image of tracing.
[2025-02-08 20:00] VITALS: PULSE 75; RESP 18; O2SAT 94
[2025-02-08] MEDS: HYDROcodone-ACET 5/325MG TAB PO PRN (20:11)
[2025-02-08] MEDS: ERGOCALCIFEROL 50,000 UNIT(1.25MG) CAP PO SCH (20:27)
[2025-02-08 21:00] VITALS: BP 119/70; PULSE 75; RESP 18; TEMP 99.2; O2SAT 94
[2025-02-09] VITALS (7 sets, daily range): BP systolic 106–126; BP diastolic 68–75; PULSE 62–87; RESP 18; TEMP 97.7–98.6; O2SAT 93–98
[2025-02-09 08:39] LABS: Hematocrit 37.6 % (41.0-53.0); Hemoglobin 12.7 g/dL (13.5-17.5); Mean Corpuscular Hemoglobin 32.3 pg (28.0-32.0); Mean Corpuscular Volume 95.4 fL (80.0-100.0); Nucleated Red Blood Cells % 0.1 %
[2025-02-09 09:02] LABS: Alanine Aminotransferase 21 U/L (7-40); Alkaline Phosphatase 74 U/L (46-116); Anion Gap 7 (5-15); BUN/Creatinine Ratio 13.0 (10.0-20.0); Blood Urea Nitrogen 9 mg/dL (9-23); Calcium 9.3 mg/dL (8.7-10.4); Carbon Dioxide 22 mmol/L (20-31); Glucose 88 mg/dL (74-106); Potassium 4.1 mmol/L (3.5-5.1); Sodium 137 mmol/L (136-145); Total Protein 5.8 g/dL (5.7-8.2)
[2025-02-09 09:18] LABS: Albumin 3.2 g/dL (3.2-4.8); Bilirubin, Total 2.0 mg/dL (0.2-1.0); Chloride 108 mmol/L (98-107)
[2025-02-09] MEDS: SPIRONOLACTONE 25 MG TAB PO SCH (09:33)
[2025-02-09] MEDS: FUROSEMIDE 40 MG TAB PO SCH (09:35)
[2025-02-09] MEDS: LACTULOSE 20Gm/30ML SOLN PO SCH (09:36)
[2025-02-09] MEDS ORDERED: PATIENTS OWN MEDICATION (Spironolactone 1 TAB) PO SCH (10:00)
[2025-02-09 10:04] LABS: Hepatitis B Surface Antigen Negative (Negative)
[2025-02-09 10:25] LABS: Hepatitis C Antibody Negative (Negative)
--- NOTE | 2025-02-09 13:08 | DVHINCON2 ---
GI Consult Consult Note GI consult note Date of Consultation: 02/09/2025 Chief Complaint: Abdominal pain Referring Physician: Dr. Saldaña H&P: 64-year-old male with past medical history of liver cirrhosis, paracentesis, liver mass status post liver biopsy, right drop foot, back surgery, hernia repair presented to ER with complains of abdominal pain for two days. Pain was mostly in the left upper quadrant but improving at this time. Denies nausea or vomiting. Last bowel movement one day ago. No melena or red blood in stool Past Medical History: Hepatobiliary: Cirrhosis Liver mass Right dropped foot Past Surgical History: Hernia Repair, Other (Paracentesis and back surgery) Social History: NO smoking, drinking ETOH and use of illegal drugs. Family History: Noncontributory Review of Systems: Constitutional: no fever, chill, weight loss HEENT: no eye pain, no hearing loss, no oral lesion, no scleral icterus Heart: no chest pain, no chest pressure Lung: no cough, no dyspnea with exertion Abdomen: see HPI Physical exam: General: NAD, AAOX3 Chest: lung sweet clear to auscultation Heart: RRR, no murmur Abdomen: Mild-distended, no tenderness to palpation, +BS Labs: Labs Test 02/09/25 11:45 02/09/25 10:30 02/09/25 08:00 02/08/25 08:35 Range/Units Ammonia 109 H 11-32 umol/L White Blood Count 5.3 # 4.4-10.8 10^3/uL Red Blood Count 3.94 L 4.5-5.90 10^6/uL Hemoglobin 12.7 L 13.5-17.5 g/dL Hematocrit 37.6 L 41.0-53.0 % Mean Corpuscular Volume 95.4 80.0-100.0 fL Mean Corpuscular Hemoglobin 32.3 H 28.0-32.0 pg Mean Corpuscular Hemoglobin Concent 33.9 32.0-36.0 g/dL Red Cell Distribution Width 15.0 H 11.8-14.3 % Platelet Count 70 L 140-450 10^3/uL Mean Platelet Volume 7.8 6.9-10.8 fL Neutrophils (%) (Auto) 73.1 37.0-80.0 % Lymphocytes (%) (Auto) 13.1 10.0-50.0 % Monocytes (%) (Auto) 11.5 0.0-12.0 % Eosinophils (%) (Auto) 2.2 0.0-7.0 % Basophils (%) (Auto) 0.1 0.0-2.0 % Neutrophils # (Auto) 3.9 1.6-8.6 10 ^3/uL Lymphocytes # (Auto) 0.7 0.4-5.4 10 ^3/uL Monocytes # (Auto) 0.6 0-1.3 10 ^3/uL Eosinophils # (Auto) 0.1 0-0.8 10 ^3/uL Basophils # (Auto) 0 0-0.2 10 ^3/uL Nucleated Red Blood Cells 0.1 % Sodium Level 137 136-145 mmol/L Potassium Level 4.1 3.5-5.1 mmol/L Chloride Level 108 H 98-107 mmol/L Carbon Dioxide Level 22 20-31 mmol/L Anion Gap 7 5-15 Blood Urea Nitrogen 9 9-23 mg/dL Creatinine 0.69 L 0.700-1.30 mg/dL Glomerular Filtration Rate Calc 102 >90 mL/min BUN/Creatinine Ratio 13.0 10.0-20.0 Serum Glucose 88 74-106 mg/dL Calcium Level 9.3 8.7-10.4 mg/dL Total Bilirubin 2.0 H 0.2-1.0 mg/dL Aspartate Amino Transferase (AST) 26 13-40 U/L Alanine Aminotransferase (ALT) 21 7-40 U/L Alkaline Phosphatase 74 46-116 U/L Total Protein 5.8 5.7-8.2 g/dL Albumin 3.2 3.2-4.8 g/dL Carcinoembryonic Antigen 1.96 <=5.0 ng/mL Prothrombin Time 11.8 9.3-11.8 sec Prothrombin Time INR 1.13 0.9-1.15 Troponin I High Sensitivity < 3 L </=54 ng/L Lipase 44 12-53 U/L Hepatitis B Surface Antigen Negative Negative Hepatitis C Antibody Negative Negative Test 02/08/25 08:29 Range/Units Urine Color Yellow Yellow Urine Clarity Clear Clear Urine pH 6.0 5.0-9.0 Urine Specific [place] 1.023 1.001-1.035 Urine Protein Negative Negative Urine Ketones Negative Negative Urine Blood Negative Negative /uL Urine Nitrite Negative Negative Urine Bilirubin Negative Negative Urine Urobilinogen 3 H Negative mg/dL Urine Leukocyte Esterase Trace Negative /uL Urine RBC None seen 0 - 3 /hpf Urine Microscopic WBC 3 0-3 /HPF Urine Squamous Epithelial Cells Few <5 /hpf Urine Bacteria Few H None Seen /hpf Urine Mucus Few None Seen Urine Glucose Normal Normal mg/dL Imaging: CT abdomen pelvis IMPRESSION: 1. Multiple slightly dilated loops of small bowel are seen throughout the lower abdomen which may reflect focal ileus versus low-grade small bowel obstruction. 2. Concentric wall thickening of the distal colon is suggestive of infectious/inflammatory colitis 3. Mild abdominopelvic ascites. 4. Superficial fluid collection is seen in the lower midline abdomen measuring 2.4 x 7.0 cm.. Assessment: Abdominal pain Abdominal CT results of ileus versus small-bowel obstruction Possible colitis History of liver cirrhosis Ascites Plan: Discussed with Dr. Petersen Monitor labs Lactulose Abdominal x-ray We will continue to follow patient Paracentesis pending Thank you for this consult Date of Service: Feb 09, 2025 Billing Provider: DEDRA CASTREJON Common Visit Codes: CONSULT ONLY Consultation Codes: [id number] CONSULT <45MIN DEDRA CASTREJON Feb 09, 2025 13:08
--- NOTE | 2025-02-09 14:23 | DVH ---
CLINICAL INDICATION: SBO TECHNIQUE: 3 radiographic views of the abdomen and pelvis were obtained. Comparison: None FINDINGS/IMPRESSION: Nonspecific bowel gas pattern. Paucity of small bowel gas. Fluid-filled bowel loops can not be exclud ed. Small amount of gas within the large bowel. No significant fecal material within the Large bowel . Nonspecific 6 mm calcification of the right upper abdominal quadrant with 3 mm calcification of the r ight lower abdominal quadrant. The visualized lung bases are clear. No evidence of acute bony abnormalities. Postsurgical changes of the lower lumbar spine.
[2025-02-09] MEDS ORDERED: LACT10SO3 PO (15:26)
--- NOTE | 2025-02-09 17:41 | DVHDSRES ---
Discharge Summary Date of Admission Resident Creating Document: СВЕТЛАНА WETZEL RESIDENT Feb 08, 2025 at 11:56 Date of Discharge: Feb 09, 2025 Admitting Diagnosis Intractable Abdominal Pain Wounds: No wounds Labs/Diagnostic Data: Laboratory Results Test 02/09/25 11:45 02/09/25 10:30 02/09/25 08:00 02/08/25 08:35 Ammonia 109 umol/L (11-32) White Blood Count 5.3 10^3/uL (4.4-10.8) Red Blood Count 3.94 10^6/uL (4.5-5.90) Hemoglobin 12.7 g/dL (13.5-17.5) Hematocrit 37.6 % (41.0-53.0) Mean Corpuscular Volume 95.4 fL (80.0-100.0) Mean Corpuscular Hemoglobin 32.3 pg (28.0-32.0) Mean Corpuscular Hemoglobin Concent 33.9 g/dL (32.0-36.0) Red Cell Distribution Width 15.0 % (11.8-14.3) Platelet Count 70 10^3/uL (140-450) Mean Platelet Volume 7.8 fL (6.9-10.8) Neutrophils (%) (Auto) 73.1 % (37.0-80.0) Lymphocytes (%) (Auto) 13.1 % (10.0-50.0) Monocytes (%) (Auto) 11.5 % (0.0-12.0) Eosinophils (%) (Auto) 2.2 % (0.0-7.0) Basophils (%) (Auto) 0.1 % (0.0-2.0) Neutrophils # (Auto) 3.9 10 ^3/uL (1.6-8.6) Lymphocytes # (Auto) 0.7 10 ^3/uL (0.4-5.4) Monocytes # (Auto) 0.6 10 ^3/uL (0-1.3) Eosinophils # (Auto) 0.1 10 ^3/uL (0-0.8) Basophils # (Auto) 0 10 ^3/uL (0-0.2) Nucleated Red Blood Cells 0.1 % Sodium Level 137 mmol/L (136-145) Potassium Level 4.1 mmol/L (3.5-5.1) Chloride Level 108 mmol/L (98-107) Carbon Dioxide Level 22 mmol/L (20-31) Anion Gap 7 (5-15) Blood Urea Nitrogen 9 mg/dL (9-23) Creatinine 0.69 mg/dL (0.700-1.30) Glomerular Filtration Rate Calc 102 mL/min (>90) BUN/Creatinine Ratio 13.0 (10.0-20.0) Serum Glucose 88 mg/dL (74-106) Calcium Level 9.3 mg/dL (8.7-10.4) Total Bilirubin 2.0 mg/dL (0.2-1.0) Aspartate Amino Transferase (AST) 26 U/L (13-40) Alanine Aminotransferase (ALT) 21 U/L (7-40) Alkaline Phosphatase 74 U/L (46-116) Total Protein 5.8 g/dL (5.7-8.2) Albumin 3.2 g/dL (3.2-4.8) Carcinoembryonic Antigen 1.96 ng/mL (<=5.0) Prothrombin Time 11.8 sec (9.3-11.8) Prothrombin Time INR 1.13 (0.9-1.15) Troponin I High Sensitivity < 3 ng/L (</=54) Lipase 44 U/L (12-53) Hepatitis B Surface Antigen Negative (Negative) Hepatitis C Antibody Negative (Negative) Test 02/08/25 08:29 Urine Color Yellow (Yellow) Urine Clarity Clear (Clear) Urine pH 6.0 (5.0-9.0) Urine Specific [place] 1.023 (1.001-1.035) Urine Protein Negative (Negative) Urine Ketones Negative (Negative) Urine Blood Negative /uL (Negative) Urine Nitrite Negative (Negative) Urine Bilirubin Negative (Negative) Urine Urobilinogen 3 mg/dL (Negative) Urine Leukocyte Esterase Trace /uL (Negative) Urine RBC None seen /hpf (0 - 3) Urine Microscopic WBC 3 /HPF (0-3) Urine Squamous Epithelial Cells Few /hpf (<5) Urine Bacteria Few /hpf (None Seen) Urine Mucus Few (None Seen) Urine Glucose Normal mg/dL (Normal) Other Laboratory Tests 02/09/25 08:00 Brief Hx & Hospital Course: Patient is a 64-year-old male with prior medical history of alcoholic liver cirrhosis (with previous paracentesis), dropped foot, hernia repair, and back surgery with chief complaint of abdominal pain. Patient describes it as intermittent aching abdominal pain for the last year but increased in the last 2 days, centers on the left abdominal quadrant, with an intensity of 5/10, without determinant aggravating nor relieving factors. Denies fever, chills, malaise, weight loss, hematemesis, bloody stools or constipation. States he had a biopsy done 2 months ago November 2024 and that was negative for cancer. Initial labs show WBCs 8.4, hemoglobin 13.8, hematocrit 39.5, platelet count 72, sodium 140, potassium 4.1, AST 31, ALT 31, total bilirubin 2.6, ammonia 42. Abdominal CT showed multiple dilated loops of small bowel which may reflect focal ileus versus small-bowel obstruction, concentric wall thickening of the distal colon suggestive of infectious/inflammatory colitis, mild abdominopelvic ascites, and fluid collection at the lower midline abdomen. Patient was admitted for further workup and monitoring. He was started on furosemide, [place], lactulose, Zofran, spironolactone, and IV ceftriaxone. Abdominal MRI shows Liver capsule nodular morphology suggesting cirrhosis. Sequela of portal hypertension including gastric and splenic varices, marked splenomegaly, moderate volume of ascites fluid , posterior right hepatic lobe T2 bright lesion measuring 3.1 cm, concerning for hepatic neoplasm/ HCC, and interior abdominal wall/ ventral wall collection measuring 6.1 x 2.2 cm. Interventional Radiology was consulted for paracentesis. However, there was not enough fluid to be drained. GI was consulted, they recommended a an abdominal KUB which showed Nonspecific bowel gas pattern, paucity of small bowel gas, fluid-filled bowel loops can not be excluded. Small amount of gas within the large bowel, nonspecific 6 mm calcification of the right upper abdominal quadrant with 3 mm calcification of the right lower abdominal quadrant. Follow up labs show WBCs 5.3, Hb 12.7, HCT 37.6, PLT 70, sodium 137, potassium 4.1, creatinine 0/69, AST 26, ALT 26, Ammonia 109. Patient's vitals remained stable. Given that paracentesis would not be realized, patient asked to be discharged. Per GI, patient was clear for discharge with recommendations to follow up outpatient. Patient was considered stable for discharge home with orders to follow up with his PCP, Dr. Mckenna, and with outpatient GI. Physical Exam of the day of discharge: General: The patient alert and oriented in person, place, and time. Follows commands. HEENT: Normocephalic, atraumatic, moist mucous membrane Respiratory/pulmonary: Clear lungs bilaterally, vesicular murmurs present in almost all lung sweet, no associated crackles or wheezes. Cardiovascular: Normal rate, normal S1 and S2 Abdomen: Normoactive bowel sounds, minor pain to palpation in left upper quadrant, no palpable masses. Ascites Extremities: No cyanosis, no edema, normal pulses Skin: Hypopigmented horizontal scar across umbilicus secondary to hernia repair Neurological: Intact cranial nerves with no focal neurologic deficits Case discussed with Dr. Mckenna. Goals of care discussed with the patient for 20 minutes. He states he understands and agrees with the care plan. Consults/Reason for consult Gastroenterology for liver mass, recommend out patient follow up. Interventional radiology was consulted for paracentesis, not enough drainable fluid Operations or Procedures Exam: CT CT AB PEL WO CON-NO ORAL OR IV History: abd pain Comparison Study: None Technique: Multidetector spiral CT of the abdomen was performed from lung bases to pubic symphysis. Imaging was performed without IV contrast. Axial, coronal and sagittal multiplanar reformats were obtained from the axial data set by the technologist. Radiation Dose : 1. Abdomen/Pelvis: CTDIvol 19.3 mGy, DLP 1071 mGy*cm. Findings: Evaluation of solid organs is limited due to lack of intravenous contrast use. Lung Bases: No acute or significant lung base finding. Normal heart size. No pleural or pericardial effusion. Liver: The liver is normal in size. No focal lesions. Gallbladder and Biliary Tree: Unremarkable Spleen: Spleen measures up to 16 cm. Pancreas: The pancreas is grossly normal in appearance. Adrenal Glands: Unremarkable Kidneys: Kidneys are grossly normal without calculi or hydronephrosis. Bladder: Grossly unremarkable for degree of distention. Bowel: The stomach is grossly normal in appearance. Multiple slightly dilated loops of small bowel are seen throughout the lower abdomen which may reflect focal ileus versus low-grade small bowel obstruction. Concentric wall thickening of the distal colon is suggestive of infectious/inflammatory colitis The appendix is not visualized; however, no secondary findings of acute appendicitis identified. Ascites: Mild abdominopelvic ascites Lymphadenopathy: No mesenteric, retroperitoneal or periportal lymphadenopathy. Abdominal Wall and Mesentery: Superficial fluid collection is seen in the lower midline abdomen measuring 2.4 x 7.0 cm. Vasculature: The visualized abdominal aorta is normal in size and caliber. Evaluation of abdominal and pelvic vessels is limited due to lack of intravenous contrast. Pelvic Organs: Unremarkable Musculoskeletal: No aggressive focal bony lesions, acute fractures or dislocation. IMPRESSION: 1. Multiple slightly dilated loops of small bowel are seen throughout the lower abdomen which may reflect focal ileus versus low-grade small bowel obstruction. 2. Concentric wall thickening of the distal colon is suggestive of infectious/inflammatory colitis 3. Mild abdominopelvic ascites. 4. Superficial fluid collection is seen in the lower midline abdomen measuring 2.4 x 7.0 cm.. PROCEDURE: MRI MRI ABDOMEN W AND WO Indication: RULE OUT MASS, ABD PAIN COMPARISON: 02/09/2020 TECHNIQUE: Multiplanar multisequence images of the abdomen were obtained with and without contrast. FINDINGS: Examination degraded by motion. The adrenal glands unremarkable. Marked splenomegaly with the spleen measuring 15.4 cm craniocaudal. Numerous perisplenic varices. No hydronephrosis. Pancreas unremarkable. Cholelithiasis. Common bile duct is visually nondilated. Pancreatic duct nondilated. Liver capsule mildly nodular morphology. Perigastric varices. There is a posterior right hepatic lobe mildly T2 bright lesion demonstrating increased DWI signal measuring 3 x 3.1 cm. There is enhancement within the lesion however dedicated arterial phase imaging not obtained. The contrast- enhanced sequences demonstrate portal venous opacification. Stomach is partially distended. The imaged small bowel loops are moderately distended with There is a moderate volume of ascites fluid most pronounced in the right upper quadrant. The abdominal aorta is normal in caliber. There is a ventral wallm midline fluid collection measuring 6.1 x 2.2 cm. Soft tissue edema/ stranding. Colonic diverticula. IMPRESSION: Liver capsule nodular morphology suggesting cirrhosis. Sequela of portal hypertension including gastric and splenic varices, marked splenomegaly. Moderate volume of ascites fluid. Posterior right hepatic lobe T2 bright lesion measuring 3.1 cm, concerning for hepatic neoplasm/ HCC. Recommend oncology and GI consultation for further evaluation. This examination was not obtained with dedicated multiphasic imaging with the earliest sequences demonstrating blood flow in the portal venous phase already. Repeat multiphasic MRI abdomen with and without contrast suggested to garcia characterize the lesion. Anterior abdominal wall/ ventral wall collection measuring 6.1 x 2.2 cm. Small bowel wall edema/ thickening which can be secondary to enteritis, inflammatory disease, portal hypertension. Other findings as described. Please refer to CT from 24 also findings of large bowel wall thickening most pronounced in the rectosigmoid colon region. CLINICAL INDICATION: SBO TECHNIQUE: 3 radiographic views of the abdomen and pelvis were obtained. Comparison: None FINDINGS/IMPRESSION: Nonspecific bowel gas pattern. Paucity of small bowel gas. Fluid-filled bowel loops can not be excluded. Small amount of gas within the large bowel. No significant fecal material within the Large bowel. Nonspecific 6 mm calcification of the right upper abdominal quadrant with 3 mm calcification of the right lower abdominal quadrant. The visualized lung bases are clear. No evidence of acute bony abnormalities. Postsurgical changes of the lower lumbar spine. Condition at Discharge: Stable Final Diagnosis/Problems List Intractable abdominal pain, likely due to inflammatory colitis Alcoholic liver cirrhosis, with ascites 3.1 cm liver mass Chronic thrombocytopenia Colonic diverticulosis without diverticulitis UTI, ruled out History of dropped right foot Discharge Disposition: Home Discharge Instruct/Medications Diet: Regular Activity: No Restrictions, As Tolerated Follow Up/Referral: Follow up with [facility] clinic on Wednesday02/12/25 at 10 AM Follow up with outpatient GI in 1 to 2 weeks. Medications: As per EMR Scheduled Ergocalciferol (Vitamin D), 50,000 CAP PO QWEEKLY, (Reported) Furosemide (Furosemide), 1 TAB PO DAILY, (Reported) Lactulose (Lactulose), 30 ML PO DAILY Spironolactone (Spironolactone), 1 TAB PO DAILY, (Reported) Discharge Statement: "Patient was advised to return to the ER or call 911 if any headaches, dizziness, shortness of breath, chest pain, abdominal pain, bleeding, fevers, or worsening of medical condition. Patient was counseled about treatment plan, medications, possible side effects, patientverbalized understanding. All questions were answered to the best of my ability. This discharge took greater then 30 minutes in planning, reviewing documentation, counseling the patient, and discussing with other team members." ASSESSMENT ASSESSMENT Assessment Addendum Addendum Addendum I was physically present for the [place] portions of the service provided to patient by THE RESIDENT. I have reviewed the documentation, discussed the case with resident and agree with the resident's documentation except as noted. Also the patient's clinical case was discussed with the patient's nurse. This medical document was created using an electronic medical record system with computerized dictation system. Although this document has been carefully reviewed, there might still be some phonetic and typographical errors. These areas are purely typographical due to imperfections of the software programs, and do not reflect any compromise in the patient's medical care. Late signature. Date of Service: Feb 09, 2025 Billing Provider: VERO MCKENNA MD Common Visit Codes: 57672-QJA/OBS DISCH DAY >30min Secondary Visit Codes: 82129-WSGJBTQK CARE PLAN 30 MINUTES (20 minutes) СВЕТЛАНА WETZEL RESIDENT Feb 09, 2025 17:40 VERO MCKENNA MD Feb 10, 2025 14:16
--- NOTE | 2025-02-12 07:55 | DVH ---
INDICATION: EPIGASTRIC PAIN, HX OF LIVER CIRRHOSIS TECHNIQUE: Multiple real-time sonographic images were obtained of the Abdomen. COMPARISON: None FINDINGS: PANCREAS: Obscured. LIVER: Nodular and coarse in echotexture. Overall increased echogenicity. 3.2 x 2.8 x 2.8 cm mass within the right hepatic lobe GALLBLADDER: Gallbladder wall measures 0.4 cm. There are gallstones. No sludge. No pericholecystic fluid. Negative jay sign. COMMON BILE DUCT: Not well visualized. RIGHT KIDNEY: Measures 10.1 cm. Normal in echogenicity. No mass. No urinary stones. No hydronephrosis. LEFT KIDNEY: Measures 12 cm. Normal in echogenicity. No mass. No urinary stones. No hydronephrosis. OTHERS: Ascites noted. IMPRESSION: 1. Cirrhosis and hepatic steatosis with 3.2 cm right hepatic mass. 2. Gallstones with mildly thickened gallbladder wall which may be reactive to adjacent inflamed hepatic tissue. 3. Ascites. PRINTER APPRENTICE ADDENDUM # 1 INDICATION: EPIGASTRIC PAIN, HX OF LIVER CIRRHOSIS TECHNIQUE: Multiple real-time sonographic images were obtained of the Abdomen. COMPARISON: None FINDINGS: PANCREAS: Obscured. LIVER: Nodular and coarse in echotexture. Overall increased echogenicity. 3.2 x 2.8 x 2.8 cm mass within the right hepatic lobe GALLBLADDER: Gallbladder wall measures 0.4 cm. There are gallstones. No sludge. No pericholecystic fluid. Negative jay sign. COMMON BILE DUCT: Not well visualized. RIGHT KIDNEY: Measures 10.1 cm. Normal in echogenicity. No mass. No urinary stones. No hydronephrosis. LEFT KIDNEY: Measures 12 cm. Normal in echogenicity. No mass. No urinary stones. No hydronephrosis. OTHERS: Ascites noted. IMPRESSION: 1. Cirrhosis and hepatic steatosis with 3.2 cm right hepatic mass. 2. Gallstones with mildly thickened gallbladder wall which may be reactive to adjacent inflamed hepatic tissue. 3. Ascites. PRINTER APPRENTICE BRED
== END 2025-02-09 17:26 | disposition home or self-care (01) | DRG 392 ==
LOC: ER 08:14 → OVERFLOW 11:56 → EAST 15:42
PROVIDERS: ADMIT Internal Medicine; ATTEND Internal Medicine
DX: K52.89 Other specified noninfective gastroenteritis and colitis (principal); K80.12 Calculus of gallbladder with acute and chronic cholecystitis without obstruction; K70.31 Alcoholic cirrhosis of liver with ascites; R16.0 Hepatomegaly, not elsewhere classified; K57.30 Diverticulosis of large intestine without perforation or abscess without bleeding; D69.6 Thrombocytopenia, unspecified
CPT/HCPCS: 36415; 74021; 74176; 74183; 76705; 80053; 81001; 82105; 82140; 82378; 83690; 84484; 85025; 85610; 86803; 87340; 93005; 96365; 96375; G0378; J2405

== ENCOUNTER 2025-03-06 12:57 | Outpatient (CLI) | payer MEDICAID ==
[~2025-03-06 12:57] MED LIST changes: +ERGO1CAP12 PO; +FURO40TA4 PO; +LACT10SO3 PO; -MIDAZOLAM HCL 2MG/2ML 2ml VIAL (1mg/ml) IV ONE; +SPIR100T4 PO; -fentaNYL CITRATE 100 MCG/2 ML VL IV ONE
[2025-03-06 13:43] LABS: Hematocrit 38.1 % (41.0-53.0); Hemoglobin 13.4 g/dL (13.5-17.5); Mean Corpuscular Hemoglobin 32.8 pg (28.0-32.0); Mean Corpuscular Volume 93.6 fL (80.0-100.0); Nucleated Red Blood Cells % 0.1 %
[2025-03-06 14:01] LABS: Alanine Aminotransferase 33 U/L (7-40); Albumin 3.8 g/dL (3.2-4.8); Alkaline Phosphatase 92 U/L (46-116); Anion Gap 8 (5-15); BUN/Creatinine Ratio 14.6 (10.0-20.0); Blood Urea Nitrogen 13 mg/dL (9-23); Calcium 9.1 mg/dL (8.7-10.4); Carbon Dioxide 25 mmol/L (20-31); Chloride 106 mmol/L (98-107); Glucose 98 mg/dL (74-106); Potassium 4.1 mmol/L (3.5-5.1); Sodium 139 mmol/L (136-145); Total Protein 6.5 g/dL (5.7-8.2)
[2025-03-06 14:02] LABS: Bilirubin, Total 1.1 mg/dL (0.2-1.0)
== END 2025-03-06 17:00 | disposition home or self-care (01) ==
LOC: LAB 12:57
PROVIDERS: ATTEND Student in an Organized Health Care Education/Training Program
DX: K76.89 Other specified diseases of liver (principal); K70.31 Alcoholic cirrhosis of liver with ascites
CPT/HCPCS: 36415; 80053; 82105; 85025

== ENCOUNTER 2025-05-22 10:52 | Outpatient (CLI) | payer MEDICAID ==
[2025-05-22 12:04] LABS: Hematocrit 42.1 % (41.0-53.0); Hemoglobin 14.0 g/dL (13.5-17.5); Mean Corpuscular Hemoglobin 31.0 pg (28.0-32.0); Mean Corpuscular Volume 93.2 fL (80.0-100.0); Nucleated Red Blood Cells % 0.0 %
[2025-05-22 12:16] LABS: INR 1.15 (0.9-1.15); Prothrombin Time 12.0 sec (9.3-11.8)
[2025-05-22 12:21] LABS: Alanine Aminotransferase 40 U/L (7-40); Alkaline Phosphatase 99 U/L (46-116); Anion Gap 10 (5-15); BUN/Creatinine Ratio 12.0 (10.0-20.0); Blood Urea Nitrogen 11 mg/dL (9-23); Calcium 9.3 mg/dL (8.7-10.4); Carbon Dioxide 27 mmol/L (20-31); Chloride 103 mmol/L (98-107); Glucose 94 mg/dL (74-106); Potassium 4.2 mmol/L (3.5-5.1); Sodium 140 mmol/L (136-145); Total Protein 7.5 g/dL (5.7-8.2)
[2025-05-22 12:22] LABS: Albumin 3.9 g/dL (3.2-4.8); Bilirubin, Total 2.6 mg/dL (0.2-1.0)
[2025-05-23 09:07] LABS: Immunoglobulin A 557 mg/dL (61-437); Immunoglobulin G, Serum 1608 mg/dL (603-1613); Immunoglobulin M 56 mg/dL (20-172)
[2025-05-23 14:25] LABS: Hepatitis A Total Antibody Positive (Negative); Hepatitis B Surface Antigen Negative (Negative)
== END 2025-05-22 17:00 | disposition home or self-care (01) ==
LOC: LAB 10:52
DX: K76.6 Portal hypertension (principal); F11.11 Opioid abuse, in remission; Z79.899 Other long term (current) drug therapy
CPT/HCPCS: 36415; 80053; 82103; 82105; 82390; 82728; 82784; 85025; 85610; 86703; 86704; 86706; 86708; 86803; 87340

== ENCOUNTER 2025-06-05 10:09 | Outpatient (CLI) | payer MEDICAID ==
[2025-06-05 10:47] LABS: Hematocrit 37.7 % (41.0-53.0); Hemoglobin 13.1 g/dL (13.5-17.5); Mean Corpuscular Hemoglobin 31.9 pg (28.0-32.0); Mean Corpuscular Volume 92.2 fL (80.0-100.0); Nucleated Red Blood Cells % 0.0 %
[2025-06-05 10:54] LABS: Urine Protein, UAD 1+ (Negative)
[2025-06-05 11:02] LABS: INR 1.09 (0.9-1.15); Prothrombin Time 11.5 sec (9.3-11.8)
[2025-06-05 11:13] LABS: Alanine Aminotransferase 38 U/L (7-40); Albumin 3.4 g/dL (3.2-4.8); Alkaline Phosphatase 92 U/L (46-116); Anion Gap 7 (5-15); BUN/Creatinine Ratio 9.6 (10.0-20.0); Calcium 8.8 mg/dL (8.7-10.4); Carbon Dioxide 28 mmol/L (20-31); Chloride 105 mmol/L (98-107); Cholesterol 150 mg/dL (< 200); Glucose 100 mg/dL (74-106); HDL Cholesterol 57 mg/dL (40-59); Potassium 4.0 mmol/L (3.5-5.1); Sodium 140 mmol/L (136-145); Total Protein 6.7 g/dL (5.7-8.2); Triglycerides 46 mg/dL (< 150)
[2025-06-05 11:17] LABS: Bilirubin, Total 1.4 mg/dL (0.2-1.0); Blood Urea Nitrogen 8 mg/dL (9-23)
[2025-06-05 16:39] LABS: Prostate Specific Antigen 0.98 ng/mL (0.0-4.0)
[2025-06-05 16:46] LABS: Free T4 (Free Thyroxine) 0.91 ng/dL (0.89-1.76)
== END 2025-06-05 17:00 | disposition home or self-care (01) ==
LOC: LAB 10:09
PROVIDERS: ATTEND Internal Medicine
DX: E55.9 Vitamin D deficiency, unspecified (principal); D61.818 Other pancytopenia; K74.60 Unspecified cirrhosis of liver; R79.89 Other specified abnormal findings of blood chemistry; R82.90 Unspecified abnormal findings in urine; Z00.01 Encounter for general adult medical examination with abnormal findings
CPT/HCPCS: 36415; 80053; 80061; 81001; 82105; 82140; 82306; 82607; 83036; 84153; 84439; 84443; 85025; 85610; 86780

== ENCOUNTER 2025-07-30 08:45 | Outpatient (CLI) | payer MEDICAID ==
[2025-07-30 09:23] LABS: Chloride 104 mmol/L (98-107); Potassium 3.7 mmol/L (3.5-5.1); Sodium 140 mmol/L (136-145)
[2025-07-30 09:24] LABS: Anion Gap 7 (5-15); Carbon Dioxide 29 mmol/L (20-31)
[2025-07-30 09:25] LABS: Calcium 9.0 mg/dL (8.7-10.4)
[2025-07-30 09:29] LABS: Glucose 89 mg/dL (74-106)
[2025-07-30 09:30] LABS: BUN/Creatinine Ratio 11.5 (10.0-20.0); Blood Urea Nitrogen 10 mg/dL (9-23)
== END 2025-07-30 17:00 | disposition home or self-care (01) ==
LOC: LAB 08:45
PROVIDERS: ATTEND Internal Medicine
DX: K74.60 Unspecified cirrhosis of liver (principal); R16.0 Hepatomegaly, not elsewhere classified
CPT/HCPCS: 36415; 80048